=== PATIENT | female | born 1955 | race Caucasian/White ===

== ENCOUNTER → 2017-11-24 | Outpatient (CLI) | payer BC ==
--- NOTE | 2017-11-25 10:25 | MM ---
Reason for exam: screening (asymptomatic). Last mammogram was performed 3 years and 9 months ago. History: Patient is postmenopausal. Physical Findings: A clinical breast exam by your physician is recommended on an annual basis and results should be correlated with mammographic findings. MG Screening Mammo w CAD Bilateral CC and MLO view(s) were taken. Prior study comparison: February 08, 2014, bilateral MG screening mammo w CAD. March 12, 2009, bilateral digital screening mammogram. There are scattered fibroglandular densities. There is no discrete abnormality. No significant changes when compared with prior studies. ASSESSMENT: Negative, BI-RAD 1 RECOMMENDATION: Routine screening mammogram of both breasts in 1 year.
== END | disposition home or self-care (01) ==
LOC: RADMAMWWP 16:40
PROVIDERS: ATTEND Family Medicine
DX: Z12.31 Encounter for screening mammogram for malignant neoplasm of breast (principal)
CPT/HCPCS: 77067

== ENCOUNTER → 2020-02-21 | Outpatient (CLI) | payer OTHER ==
--- NOTE | 2020-02-22 11:13 | MM ---
Reason for exam: screening (asymptomatic). Last mammogram was performed 2 years and 3 months ago. History: Patient is postmenopausal. Took hormonal contraceptives for 4 years. Physical Findings: A clinical breast exam by your physician is recommended on an annual basis and results should be correlated with mammographic findings. MG Screening Mammo w CAD Bilateral CC and MLO view(s) were taken. Prior study comparison: November 24, 2017, bilateral MG screening mammo w CAD. February 08, 2014, bilateral MG screening mammo w CAD. The breast tissue is almost entirely fat. No significant changes when compared with prior studies. ASSESSMENT: Negative, BI-RAD 1 RECOMMENDATION: Routine screening mammogram of both breasts in 1 year.
== END | disposition home or self-care (01) ==
LOC: RADMAMWWP 15:40
PROVIDERS: ATTEND Family Medicine
DX: Z12.31 Encounter for screening mammogram for malignant neoplasm of breast (principal)
CPT/HCPCS: 77067

== ENCOUNTER 2020-10-28 18:18 | Emergency (ER) | payer OTHER ==
[2020-10-28] MEDS ORDERED: PANTOPRAZOLE 40 MG/10 ML VIAL IVP STA (19:10)
[2020-10-28] MEDS ORDERED: DICYCLOMINE 10 MG/ML 2 ML AMP IM STA (19:10)
[2020-10-28] MEDS ORDERED: SODIUM CHLORIDE 0.9% 1,000 ML IV STA (19:10)
[2020-10-28] MEDS ORDERED: ONDANSETRON 4 MG/2 ML VIAL IVP STA (19:10)
--- NOTE | 2020-10-28 19:13 | ED ---
General Adult HPI - General Chief complaint: Nausea/Vomiting/Diarrhea Stated complaint: fever, N/V/D Time Seen by Provider: 10/28/20 18:44 Source: patient, RN notes reviewed Mode of arrival: ambulatory Limitations: no limitations - History of Present Illness Initial comments: Patient is a pleasant 65-year-old female presenting to the emergency Department with complaints of nausea vomiting and diarrhea. Onset of symptoms was around a week ago. Patient was vomiting however that is mostly resolved. Patient saw some nausea. Patient is having diarrhea 3-4 times daily. Patient has occasional abdominal cramping. No pain. Patient has had some fevers. No cough. Minimal nasal congestion. - Related Data Home Medications Medication Instructions Recorded Confirmed Omeprazole 20 mg PO DAILY PRN 10/28/20 10/28/20 Ondansetron Odt [Zofran ODT] 4 mg PO BID PRN 10/28/20 10/28/20 buPROPion XL [Wellbutrin XL] 150 mg PO DAILY 10/28/20 10/28/20 Allergies Allergy/AdvReac Type Severity Reaction Status Date / Time No Known Allergies Allergy Verified 10/28/20 19:32 Review of Systems ROS Statement: Those systems with pertinent positive or pertinent negative responses have been documented in the HPI. ROS Other: All systems not noted in ROS Statement are negative. Constitutional: Reports: fever Eyes: Denies: eye pain ENT: Denies: ear pain Respiratory: Denies: cough, dyspnea Cardiovascular: Denies: chest pain, palpitations Endocrine: Reports: fatigue Gastrointestinal: Reports: nausea, vomiting, diarrhea. Denies: abdominal pain Genitourinary: Denies: dysuria Musculoskeletal: Denies: back pain Skin: Denies: rash Neurological: Denies: weakness Past Medical History Additional Past Medical History / Comment(s): gallstones History of Any Multi-Drug Resistant Organisms: None Reported Past Surgical History: Tubal Ligation Past Anesthesia/Blood Transfusion Reactions: No Reported Reaction Past Psychological History: No Psychological Hx Reported, Depression Smoking Status: Never smoker Past Alcohol Use History: None Reported Past Drug Use History: None Reported - Past Family History Mother Family Medical History: Congestive Heart Failure (CHF), Thyroid Disorder Father Family Medical History: Cancer Additional Family Medical History / Comment(s): Kidney Cancer Brother(s) Family Medical History: Cancer Additional Family Medical History / Comment(s): colon cancer General Exam Limitations: no limitations General appearance: alert, in no apparent distress Head exam: Present: normocephalic Eye exam: Present: normal appearance Neck exam: Present: normal inspection Respiratory exam: Present: normal lung sounds bilaterally Cardiovascular Exam: Present: regular rate, normal rhythm GI/Abdominal exam: Present: soft. Absent: distended, tenderness Extremities exam: Present: normal inspection Neurological exam: Present: alert Psychiatric exam: Present: normal affect, normal mood Skin exam: Present: normal color Course Vital Signs 10/28/20 18:23 Temperature 98.2 F Pulse Rate 87 Respiratory 22 Rate Blood Pressure 132/72 O2 Sat by Pulse 94 L Oximetry Medical Decision Making - Medical Decision Making Patient reevaluated and resting comfortably in bed. Patient does have dehydration and positive color. Patient will see further fluid. Patient discussed medical no antibody and is agreeable. Patient will be discharged following observation of the medication menstruation. - Lab Data Result diagrams: 10/28/20 19:50 10/28/20 19:50 Lab Results 10/28/20 10/28/20 10/28/20 Range/Units 19:50 19:50 19:50 WBC 3.5 L (3.8-10.6) k/uL RBC 5.71 H (3.80-5.40) m/uL Hgb 16.7 H (11.4-16.0) gm/dL Hct 47.2 H (34.0-46.0) % MCV 82.7 (80.0-100.0) fL MCH 29.2 (25.0-35.0) pg MCHC 35.3 (31.0-37.0) g/dL RDW 13.2 (11.5-15.5) % Plt Count 250 (150-450) k/uL MPV 7.7 Neutrophils % 69 % Lymphocytes % 21 % Monocytes % 7 % Eosinophils % 1 % Basophils % 1 % Neutrophils # 2.4 (1.3-7.7) k/uL Lymphocytes # 0.7 L (1.0-4.8) k/uL Monocytes # 0.2 (0-1.0) k/uL Eosinophils # 0.0 (0-0.7) k/uL Basophils # 0.0 (0-0.2) k/uL Sodium 131 L (137-145) mmol/L Potassium 3.7 (3.5-5.1) mmol/L Chloride 98 (98-107) mmol/L Carbon Dioxide 22 (22-30) mmol/L Anion Gap 11 mmol/L BUN 31 H (7-17) mg/dL Creatinine 1.72 H (0.52-1.04) mg/dL Est GFR (CKD-EPI)AfAm 36 (>60 ml/min/1.73 sqM) Est GFR (CKD-EPI)NonAf 31 (>60 ml/min/1.73 sqM) Glucose 113 H (74-99) mg/dL Calcium 8.6 (8.4-10.2) mg/dL Total Bilirubin 0.5 (0.2-1.3) mg/dL AST 73 H (14-36) U/L ALT 41 H (4-34) U/L Alkaline Phosphatase 94 (38-126) U/L Total Protein 7.2 (6.3-8.2) g/dL Albumin 3.9 (3.5-5.0) g/dL Amylase 71 (30-110) U/L Lipase 279 (23-300) U/L Coronavirus (PCR) Detected A (Not Detectd) Disposition Clinical Impression: COVID-19, Diarrhea, Dehydration Disposition: HOME SELF-CARE Condition: Stable Instructions (If sedation given, give patient instructions): Acute Diarrhea (ED), Acute Nausea and Vomiting (ED) Additional Instructions: Discharge following Bam. Please follow-up with primary care physician in the next day or 2 for recheck. Return for vomiting, not tolerating fluids, concerns for dehydration, difficulty breathing, uncontrolled fevers, worsening symptoms or any other concerns. [id number] Tylenol as needed. Ckoy-lho-wvofool vitamin C, vitamin D, and zinc. Is patient prescribed a controlled substance at d/c from ED?: No Referrals: Amadeo Britton MD [Primary Care Provider] - 1-2 days Time of Disposition: 20:17
[2020-10-28 19:55] LABS: Basophils % (A) 1 %; Eosinophils % (A) 1 %; HCT 47.2 % (34.0-46.0); HGB 16.7 gm/dL (11.4-16.0); Lymphocytes # (A) 0.7 k/uL (1.0-4.8); Lymphocytes % (A) 21 %; MCH 29.2 pg (25.0-35.0); MCHC 35.3 g/dL (31.0-37.0); MCV 82.7 fL (80.0-100.0); Mean Platelet Volume 7.7; Monocytes # (A) 0.2 k/uL (0-1.0); Monocytes % (A) 7 %; Neutrophils # (A) 2.4 k/uL (1.3-7.7); Neutrophils % (A) 69 %; Platelet Count 250 k/uL (150-450); RBC 5.71 m/uL (3.80-5.40); RDW 13.2 % (11.5-15.5); WBC 3.5 k/uL (3.8-10.6)
[2020-10-28 20:04] LABS: Albumin 3.9 g/dL (3.5-5.0); Calcium 8.6 mg/dL (8.4-10.2); Potassium 3.7 mmol/L (3.5-5.1); Total Bilirubin 0.5 mg/dL (0.2-1.3); Total Protein 7.2 g/dL (6.3-8.2)
[2020-10-28] MEDS ORDERED: ACETAMINOPHEN TAB 500 MG TAB PO STA (20:18)
[2020-10-28] MEDS ORDERED: SODIUM CHLORIDE 0.9% 500 ML 500 ML IV STA (20:18)
--- NOTE | 2020-10-28 20:40 | XR ---
EXAMINATION TYPE: XR chest 2V DATE OF EXAM: 10/28/2020 COMPARISON: NONE HISTORY: Fever. TECHNIQUE: Frontal and lateral views of the chest are obtained. FINDINGS: There are bilateral diffuse moderate patchy opacities, most notable in the mid to lower arun ngs. No pleural effusion, or pneumothorax seen. The cardiac silhouette size is within normal limits. The osseous structures are intact. IMPRESSION: Diffuse bilateral infiltrates.
[2020-10-28] MEDS ORDERED: BAMLANIVIMAB 700 MG in SODIUM CHLORIDE 0.9% 50 ML IVPB ONE (21:15)
[2020-10-28 21:39] LABS: Partial Thromboplastin Time 23.8 sec (22.0-30.0); Prothrombin Time 10.3 sec (9.0-12.0)
[2020-10-28 22:11] VITALS: RESP 18
[2020-10-28 23:47] VITALS: BP 101/67; PULSE 55; TEMP 98.3
== END 2020-10-28 23:37 | disposition home or self-care (01) ==
LOC: EC 18:18
DX: U07.1 COVID-19 (principal); E86.0 Dehydration; F32.9 Major depressive disorder, single episode, unspecified; Z79.899 Other long term (current) drug therapy; Z98.51 Tubal ligation status
CPT/HCPCS: 80053; 82150; 83690; 85025; 85610; 85730; 87635; 71046; 99284; 96365; 96375 ×2; 96372; 96361; J0500; J2405; C9113; Q0239